=== PATIENT | female | born 1965 | race Caucasian/White ===

== ENCOUNTER → 2020-10-22 00:21 | Outpatient (CLI) | payer OTHER, SELFPAY ==
[2020-10-22 17:58] LABS: SARS-CoV-2 RNA PCR Negative
== END ==
PROVIDERS: PCP Family Medicine; Visit Provider Internal Medicine Critical Care Medicine
DX: Z01.812 Encounter for preprocedural laboratory examination (principal); Z20.822 Contact with and (suspected) exposure to COVID-19
CPT/HCPCS: C9803; U0003; U0005

== ENCOUNTER 2020-10-24 09:15 | Outpatient (CLI) | payer OTHER, SELFPAY ==
--- NOTE | 2020-11-14 11:27 | WPDSLEEPSTUD ---
Sleep Study Ordering Provider: Katherine James MD Interpreting Physician: Katherine James MD Sleep Study Type: Split Polysomnogram Height: 1.68 m Weight: 96.785 kg Body Mass Index: 34.4 Neck Circumference (inches): 13 Adrian: 18 Reason for Sleep Study Loud snoring, excessive sleepiness Sleep History Kimmy Astudillo is a 55 year old female with a 15 year history of non-restorative sleep. This started after a thyroid disorder but it has worsen. She is falling asleep at work. She nods off while driving. As soon as she gets home from work, she takes a 30 minute nap which occasionally lasts as long as 2 hours. She is ready to go to bed by 9:00 p.m.. Her excessive sleepiness is worsened when her depression increases. She has used sleeping pills which have not helped. She constantly snores loudly enough that others complain about it. She frequently awakens at night with heartburn, belching or coughing. She occasionally awakens from sleep feeling short of breath. She frequently has trouble sleep with a cold. She occasionally wakes up gasping for breath at night. She frequently has breathing problems at night observed by others. She frequently sweats excessively at night. She occasionally notices her heart pounding or beating irregularly night. She constantly falls asleep during the day, frequently involuntarily, occasionally while driving. She does not fall asleep while exerting physical effort. She does not have loss of muscle tone was strong emotion. She frequently has daytime difficulties due to excessive sleepiness, works as an administrative personal assistant. She occasionally feels paralyzed on waking or falling asleep. She rarely has vivid dreamlike scenes upon awakening or falling asleep. She rarely feels afraid to go to sleep. She rarely has nightmares. She occasionally remembers her dreams. She frequently has racing thoughts. She occasionally has feelings of sadness or depression. She frequently has anxiety and worries about things. She frequently has muscular tension. She rarely notices parts of her body jerking. She does not kick at night. She occasionally has crawling and aching feelings in her legs and occasionally has leg pain during the night. She frequently has morning jaw pain. She frequently grinds her teeth during sleep. She constantly is bothered by pain during the day. She frequently is awakened by pain during the night. She constantly wakes up feeling stiff in the morning, frequently with sore or achy muscles, constantly with spine pain. She has palpitations, headaches, fatigue, memory problems, tremors, concentration difficulties and she takes antacids regularly. Her normal bedtime is 8:30 p.m. falling asleep within 5 minutes but sometimes taking as long as 2 hours to fall asleep. She typically wakes 2-3 times at night, gets a drink of water. she has nocturia about twice per week. she wakes in the morning at 4:00 a.m.. She estimates getting 5-7 hours of sleep at night. On the weekends, she goes to bed later 10:00 p.m. and wakes between 6 and 7 in the morning. She does take naps. A short nap is not refreshing. She is usually drowsy in the morning for 2 hours or longer. She feels better in the evening compared to earlier in the day. Habits: Never smoked tobacco. Caffeine 2 servings per day. No alcohol or recreational drugs. PMFSH Past Medical History Medical History Allergies Anxiety Benign essential HTN Chronic hand pain Depression Fibromyalgia GERD (gastroesophageal reflux disease) H/O mammogram 2018 HTN (hypertension) Hyperlipidemia Hypothyroid Inflammatory arthritis (~2009) Migraines Sinusitis Surgical History Surgical History Delivery by section H/O: hysterectomy History of colonoscopy 2018 Hx of cholecystectomy Family History Family History (Reviewed 11/14/20 @
[2020-11-14 11:30] VITALS: BMI 34.4
== END 2020-10-24 09:16 | disposition home or self-care (01) ==
LOC: ANHCSM 09:16
PROVIDERS: PCP Family Medicine; Visit Provider Internal Medicine Critical Care Medicine
DX: G47.30 Sleep apnea, unspecified (principal); G47.10 Hypersomnia, unspecified; G47.33 Obstructive sleep apnea (adult) (pediatric)
CPT/HCPCS: 95811

== ENCOUNTER 2020-11-03 15:13 | Outpatient (CLI) | payer OTHER, SELFPAY | END 2020-11-03 15:14 | disposition home or self-care (01) | LOC: ANHCOVIDVC 15:13 | PROVIDERS: PCP Family Medicine | DX: Z23 Encounter for immunization (principal) | CPT/HCPCS: 0001A; 91300 ==

== ENCOUNTER 2020-11-24 15:17 | Outpatient (CLI) | payer OTHER, SELFPAY | END 2020-11-24 15:18 | disposition home or self-care (01) | LOC: ANHCOVIDVC 15:17 | PROVIDERS: PCP Family Medicine | DX: Z23 Encounter for immunization (principal) | CPT/HCPCS: 0002A; 91300 ==

== ENCOUNTER 2024-06-29 11:36 | Outpatient (CLI) | payer OTHER, SELFPAY ==
[2024-06-29 14:29] LABS: Basophils Percent Auto 0.2 % (0.2-1.2); Hematocrit 47.5 % (37.0-47.0); Hemoglobin 15.6 g/dL (12.0-15.0); Immature Granulocyte Absolute 0.01 K/mm3 (0.00-0.031); Immature Granulocyte Percent A 0.2 % (0-0.5); Lymphocytes Absolute Auto 1.38 K/mm3 (0.9-3.2); Lymphocytes Percent Auto 29.9 % (18.3-44.2); Mean Corpuscular HGB Conc 32.8 g/dl (32-36); Mean Corpuscular Hemoglobin 30.3 pg (26-34); Mean Corpuscular Volume 92.2 fl (80-100); Mean Platelet Volume 9.6 fl (7.4-10.4); Monocytes Absolute Auto 0.3 K/mm3 (0.1-0.6); Monocytes Percent Auto 7.1 % (2.6-8.5); Neutrophils Absolute Auto 2.9 K/mm3 (1.3-6.7); Neutrophils Percent Auto 62.6 % (45.5-73.1); Platelet Count Result 209 k/mm3 (150-375); Red Blood Count 5.15 M/mm3 (4.2-5.4); Red Cell Distribution Width 13.4 % (11.5-14.5); White Blood Count 4.6 K/mm3 (4.5-10.0)
[2024-06-29 15:28] LABS: Alanine Aminotransferase 49 U/L (6-35); Albumin Level 4.7 g/dL (3.5-5.1); Alkaline Phosphatase 124 U/L (38-126); Anion Gap 5 mmol/L (4-12); Aspartate Amino Transferase 52 U/L (14-36); Bilirubin,Total 1.2 mg/dL (0.2-1.3); Blood Urea Nitrogen 13 mg/dL (7-17); Calcium 9.6 mg/dL (8.4-10.2); Carbon Dioxide 31 mmol/L (22-30); Chloride 102 mmol/L (98-107); Cholesterol 320 mg/dL (0-200); Estimated Glomerular Filt Rate 51; Glucose 119 mg/dL (65-110); HDL Direct 86 mg/dL; Potassium 4.7 mmol/L (3.4-5.0); Sodium 138 mmol/L (137-145); Triglycerides 195 mg/dL (<150)
[2024-06-29 15:39] LABS: LDL Cholesterol Direct 163 mg/dL
[2024-06-29 15:59] LABS: Free T4 Free Thyroxine 0.94 ng/mL (0.78-2.19); Vitamin D 25 Hydroxy 46.2 ng/mL
[2024-06-29 17:18] LABS: Hemoglobin A1C 5.5 % (<5.7)
== END 2024-06-29 11:37 | disposition home or self-care (01) ==
LOC: ANHGOSHLAB 11:37
PROVIDERS: PCP Family Medicine; Visit Provider Nurse Practitioner Family
DX: R73.03 Prediabetes (principal); E55.9 Vitamin D deficiency, unspecified; I10 Essential (primary) hypertension; E03.9 Hypothyroidism, unspecified; E78.5 Hyperlipidemia, unspecified
CPT/HCPCS: 36415; 80053; 80061; 82306; 83036; 84439; 84443; 85025